=== PATIENT | female | born 2000 | race Hispanic/Latino ===

== ENCOUNTER → 2020-07-19 14:42 | Outpatient (CLI) | payer OTHER, MEDICAID, SELFPAY ==
[2020-07-20 09:21] LABS: HIV - WCH Non-Reactive (Nonreactive); Hepatitis B Surface Antigen Non-Reactive (Nonreactive)
[2020-07-21 01:33] LABS: Rapid Plasmin Reagin (RPR) NONREACTIVE (NONREACTIVE)
[2020-07-22 03:07] LABS: Chlamydia By Nucleic Acid AMP Negative (Negative)
[2020-07-22 15:44] LABS: Gonococcus By Nucleic Acid AMP Negative (Negative)
== END ==
PROVIDERS: PCP Pediatrics; Visit Provider Student in an Organized Health Care Education/Training Program
DX: Z11.3 Encounter for screening for infections with a predominantly sexual mode of transmission (principal)
CPT/HCPCS: 86592; 86703; 87340; 87491; 87591

== ENCOUNTER → 2022-04-03 | Outpatient (CLI) | payer OTHER, MEDICAID, SELFPAY ==
[2022-04-03 16:34] LABS: Absolute Lymphocyte Count 2.46 X10^3/uL (0.83-4.51); Absolute Neutrophil Count 3.3 X10^3/uL (2.0-7.7); Basophil# 0.03 X10^3/uL; Basophil% 0.5 % (0-1); Eosinophil# 0.14 X10^3/uL; Eosinophils% 2.2 % (0-5); Hematocrit 35.6 % (37-47); Hemoglobin 11.2 g/dL (12.0-15.0); Lymphocyte # 2.46 X10^3/ul (0.83-4.51); Lymphocyte % 38.3 % (19-41); Mean Corp Hgb Conc 31.5 g/dL (32-36); Mean Corpuscular Hgb 24.2 pg (27.0-32.0); Mean Corpuscular Volume 76.9 fL (81-99); Mean Platelet Vol. 12.6 fl (6.2-12.0); Monocyte# 0.46 X10^3/uL; Monocyte% 7.2 % (0-10); NRBC Flagged by Analyzer 0 % (0-5); Neutrophil # 3.32 X10^3/uL (2.7-7.7); Neutrophil % 51.6 % (47-70); Platelet Count 209 K/mm3 (150-450); RBC Distribution Width CV 14.6 % (11.6-14.6); RBC Distribution Width SD 40.2 fl (35.1-43.9); Red Blood Count 4.63 M/mm3 (4.2-5.4); White Blood Count 6.4 K/mm3 (4.4-11.0)
[2022-04-03 17:01] LABS: Hemoglobin A1c 5.2 % (3.8-5.6)
[2022-04-03 17:59] LABS: Vitamin D,25 Hydroxy 27.8 ng/mL
[2022-04-03 19:18] LABS: AST(SGOT) 24 U/L (15-37); Alanine Aminotransfer ALT/SGPT 19 U/L (13-56); Albumin, Serum 3.9 g/dL (3.2-5.0); Alkaline Phosphatase 72 U/L (45-117); Anion Gap 4 (5-15); BUN 11 mg/dL (7-18); BUN/Creat Ratio 19.2 RATIO (10-20); Calcium,Total 8.6 mg/dL (8.5-10.1); Chloride 107 mmol/L (98-107); Cholesterol 163 mg/dL (200); Creatinine, Serum 0.57 mg/dL (0.55-1.02); EST Glomerular Filtration Rate 140 mL/min (>60); Est Glom Filt Rate - Afr Amer 169 mL/min (>60); Free T3 2.5 pg/mL (2.18-3.98); Glucose 78 mg/dL (74-106); High Density Lipoprotein 67 mg/dL; Potassium 3.6 mmol/L (3.5-5.1); Protein, Total 7.9 g/dL (6.4-8.2); Sodium Level 139 mmol/L (136-145); T4 Free Direct 0.92 ng/dL (0.76-1.46); Thyroid Stim Hormone (TSH) < 0.01 uIU/mL (0.358-3.74); Triglycerides 174 mg/dL; Very Low Density Lipoprotein 35 mg/dL (5-40)
[2022-04-04 08:37] LABS: Ferritin 4 ng/mL (8-252); Iron 27 ug/dL (50-170); Iron Binding Capacity,Total 522 ug/dL (250-450); PERCENT IRON SATURATION 5.2 % (15.0-55.0)
[2022-04-05 22:07] LABS: Thyroid Peroxidase AB 592 IU/mL (0-34)
[2022-04-05 22:44] LABS: Thyroglobulin Antibody 7.7 IU/mL (0.0-0.9)
== END | disposition home or self-care (01) ==
LOC: BIMLAB 15:46
PROVIDERS: PCP Internal Medicine; Referring Provider Internal Medicine; Visit Provider Internal Medicine
DX: E56.9 Vitamin deficiency, unspecified (principal); E07.9 Disorder of thyroid, unspecified; E05.90 Thyrotoxicosis, unspecified without thyrotoxic crisis or storm
CPT/HCPCS: 36415; 80053; 80061; 82306; 82728; 83036; 83540; 83550; 84439; 84443; 84481; 85025; 86376; 86800

== ENCOUNTER 2025-09-02 08:52 | Emergency (ER) | payer OTHER, MEDICAID, SELFPAY ==
[2025-09-02 08:53] VITALS: BP 109/72; PULSE 81; RESP 14; TEMP 36.1; O2SAT 98
== END 2025-09-02 09:05 | disposition left against medical advice (07) ==
LOC: ED 09:16
PROVIDERS: PCP Internal Medicine
DX: Z53.21 Procedure and treatment not carried out due to patient leaving prior to being seen by health care provider (principal)

== ENCOUNTER 2025-10-20 08:00 | Outpatient (RCR) | payer OTHER, SELFPAY ==
--- NOTE | 2025-10-20 09:05 | BH.SGPN.GN ---
Behaviors/Verbalizations/Mental Status: [] Eye contact is good. Motor activity is appropriate. Appearance is casual. Speech is Appropriate. Mood is anxious. Affect is congruent. Thoughts are linear and logical. No evidence of psychosis. Reviewed daily check in sheet and no reports of suicidal ideations Client Response/Progress/Benefit: [] Pt participated at times during the group discussions. Attentive. This was pt?s first day in IOP. She briefly introduced herself stating that she was recently dx?d with Bipolar and spent 10 days in an inpatient psychiatric unit. According to pt she has struggles with omer and depression in her recent past and wants to be able to find mood stability. No progress noted as this was her first day in IOP. Benefited from group support, encouragement, and feedback. Will continue in IOP to prevent decompensation/re-admission to psych unit, stabilize mood, and increase healthy coping. Narrative Note: []
--- NOTE | 2025-10-20 10:15 | BH.SGPN.GN ---
Behaviors/Verbalizations/Mental Status: []Eye contact is good. Motor activity is appropriate. Appearance is neat. Speech is Appropriate. Mood is anxious. Affect is congruent. Thoughts are linear and logical. No evidence of psychosis Client Response/Progress/Benefit: [] Pt was an active participant in group discussions AEB listening attentively to others and providing feedback at times. Participated in and was engaged during experiential activity. Able to relate activity to group topic of FOF. Engaged during interactive discussion on what failure means to the group in which peers identified and defined failure. Group was able to identify impact of fear of failure on mental health. Attentive during interactive discussion on the role that FOF plays in mental wellness, depression, anxiety, and growth. Pt reported fear of failure has kept pt from taking chances in life and that failing can actually help people grow. Benefited from increased awareness of how the role that FOF plays in mental health and decision-making. Will continue in IOP to prevent decompensation, gain healthy coping skills, and improve daily functioning. Narrative Note: []
--- NOTE | 2025-10-20 11:15 | BH.SGPN.GN ---
Behaviors/Verbalizations/Mental Status: []Client alert and oriented, neatly dressed and groomed. Eye contact good. Motor activity appropriate. Speech within normal limits. Affect congruent, mood euthymic. Thoughts linear, logical, no signs of hallucinations or delusions. Client Response/Progress/Benefit: [] Pt responded well to session, engaged in the experiential activity and attentive throughout group processing. Pt reported fear of failure has kept Pt from going to law school. Pt completed fear of failure worksheet and was able to identify thoughts and behaviors that reinforce personal fear of failure including avoidance and people pleasing. Pt participated in small group discussion regarding strategies to overcome fear of failure. Identified wanting to practice trying things even if she is scared. Appeared to benefit from increased knowledge of strategies to combat fear of failure and gaining self-awareness. Pt will continue IOP tx to prevent decompensation, improve daily functioning, and gain healthy coping skills. Narrative Note: []
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
--- NOTE | 2025-10-22 07:48 | BH.DR.ITP ---
Initial Treatment Plan Patient Information Visit Information: ADMISSION DATE: 10/20/2025 EXPECTED LOS: 4-6 weeks Diagnoses:: Bipolar I Problems/Symptoms Problem #1:: Bipolar I Symptom:: impulsivity, flight of ideas, agitation, suicidality, distractability
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
[2025-10-22 10:58] VITALS: BP 116/80; PULSE 58
--- NOTE | 2025-10-22 11:10 | BH.SGPN.GN ---
Behaviors/Verbalizations/Mental Status: []Eye contact is good. Motor activity is appropriate. Appearance is casual. Speech is Appropriate. Mood is euthymic. Affect is congruent. Thoughts are linear and logical. No evidence of psychosis. Client Response/Progress/Benefit: [] Pt was an attentive participant in group discussions and actively engaged during experiential activity. Participated with peers on identifying the connection between the experiential activity and utilization of stress management skills. Attentive during psychoeducation on the 4 A's (Avoid, adapt, alter, accept) of coping with stress. Pt engaged in self-reflection activity in which they identified one of the 4 A's to address one their top stressors. Benefited from increased awareness of stress management strategies. Pt will continue IOP to promote mood stability, increase consistent use of healthy coping skills, and prevent decompensation.
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
--- NOTE | 2025-10-27 09:00 | BH.SGPN.GN ---
Behaviors/Verbalizations/Mental Status: [] Eye contact is good. Motor activity is appropriate. Appearance is casual. Speech is Appropriate. Mood is anxious. Affect is congruent. Thoughts are linear and logical. No evidence of psychosis. Reviewed daily check in sheet and no reports of suicidal ideations Client Response/Progress/Benefit: [] Pt participated at times during the group discussions. Attentive. She shared recent anger outbursts and concerns regarding impulsivity/emotion regulation. She also shared that she is beginning to sleep throughout the night. Benefited from group support, encouragement, and feedback. Will continue in IOP to maintain safety, prevent decompensation, and stabilize mood. Narrative Note: []
--- NOTE | 2025-10-27 10:10 | BH.SGPN.GN ---
Behaviors/Verbalizations/Mental Status: []Motor activity is appropriate. Appearance is neat. Speech is Appropriate. Mood is anxious. Affect is congruent. Thoughts are linear and logical. No evidence of psychosis. Client Response/Progress/Benefit: [] Pt was an engaged participant AEB listening attentively to others, taking notes, and providing feedback in small group discussions. Attentive during psychoeducation AEB by note taking and providing some input. Pt worked along with peers in small groups to define inappropriate guilt and appropriate guilt. Interactive discussion on examples of both inappropriate and appropriate guilt. Pt able to connect impact inappropriate guilt can have on MH. Pt noted having guilt due to recent mental health decompensation. Benefited from increased awareness of guilt and the differences between appropriate and inappropriate guilt. Pt to continue IOP tx to prevent decompensation, monitor medication changes, and gain healthy coping skills. Narrative Note: []
--- NOTE | 2025-10-27 11:10 | BH.SGPN.GN ---
Behaviors/Verbalizations/Mental Status: []Pt alert and oriented, casually dressed and groomed. Eye contact good. Motor activity appropriate. Speech within normal limits. Affect congruent, mood anxious. Thoughts linear, logical, no signs of hallucinations or delusions. Client Response/Progress/Benefit: [] Pt engaged participant AEB listening attentively to others and providing input throughout group. Pt worked within their small group to identify strategies to manage inappropriate guilt. Shared a personal example of inappropriate guilt as feeling bad about hanging out with friends when mom is home alone. Insight this leads to negative self-talk and feeling she can't have balance. Pt wants to work on combatting inappropriate guilt by challenging distortions and improving communication skills. Pt seemed to benefit from learning about strategies to manage appropriate and inappropriate guilt. Pt will continue IOP tx to reduce promote mood stability, reinforce healthy boundaries, and prevent decompensation. Narrative Note: []
--- NOTE | 2025-10-29 09:00 | BH.SGPN.GN ---
Behaviors/Verbalizations/Mental Status: []Eye contact is good. Motor activity is appropriate. Appearance is casual. Speech is Appropriate. Mood is dysthymic and anxious. Affect is congruent. Thoughts are linear and logical. No evidence of psychosis. Reviewed daily check in sheet and pt denies SI, plan, or intent as of this date 10/29/25. Client Response/Progress/Benefit: [] Pt was an active participant in group discussions. Attentive. Did well to identify 2 mental health wins, which included being able to work on repairing the relationship with her sister. Described having a difficult but important conversation that went well. Additional win noted as applying for a job she feels will meet her current mental health needs of healthy distraction and socialization. Stressor noted as struggling with anxiety when by herself. Appeared to benefit from provided support, encouragement, and feedback. Identified areas of progress and skills to maintain gains. Will continue IOP tx to improve mood stability, continue to improve distress tolerance, and prevent decompensation. Narrative Note: []
--- NOTE | 2025-11-01 09:00 | BH.SGPN.GN ---
Behaviors/Verbalizations/Mental Status: [] Pt alert and oriented, neatly dressed and groomed. Eye contact good. Motor activity appropriate. Speech within normal limits. Affect constricted, mood anxious. Thoughts linear, logical, no signs of hallucinations or delusions. Reviewed pt?s symptom tracker, no risk for suicidal ideation, plan, or intent 11/01/25. Client Response/Progress/Benefit: []Pt was an active participant in group discussions. Attentive. 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 Pt's stressor today is ?my anxiety hasn?t reduced yet.? The group offered pt suggests managing this stressor and emotional support which pt reported was helpful. Pt is feeling ?anxious? this morning. Pt receptive to feedback from peers. Benefited from group support, encouragement, and feedback. Progress noted. Pt will continue IOP tx to prevent decompensation, improve daily functioning, and gain self-compassion skills. Narrative Note: []
--- NOTE | 2025-11-01 10:10 | BH.SGPN.GN ---
Behaviors/Verbalizations/Mental Status: []Pt alert and oriented, casually dressed and groomed. Eye contact good. Motor activity appropriate. Speech within normal limits. Affect congruent, mood anxious and content. Thoughts linear, logical, no signs of hallucinations or delusions. Client Response/Progress/Benefit: [] Pt took notes and contributed to group discussions. Attentive during psychoeducation on growth mindset. Interactive group discussion on fixed mindset in which group verbalized their current fixed mindsets and how they affect their mental health. Pt shared common fixed mindset thoughts they have. 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 Pt able to connect negative impact fixed thoughts have on functioning. Pt benefited from increased awareness of growth mindset and fixed thoughts and how fixed thoughts impact their mental health. Will continue IOP tx to promote use of healthy coping skills, challenge negative thoughts, and prevent decompensation. Narrative Note: []
--- NOTE | 2025-11-01 11:10 | BH.SGPN.GN ---
Behaviors/Verbalizations/Mental Status: []Pt alert and oriented, neatly dressed and groomed. Eye contact good. Motor activity appropriate. Speech within normal limits. Affect congruent, mood anxious. Thoughts linear, logical, no signs of hallucinations or delusions. Client Response/Progress/Benefit: [] Pt was an active participant during activity and discussion. Pt did well to remain attentive and participate as group worked on identifying characteristics and benefits of adopting a growth mindset. Worked with fellow participants in reframing the example fixed thoughts into growth mindset thoughts. Pt worked on changing own fixed thought. Pt attentive during discussion about different strategies that can help with fostering a growth mindset. Pt appeared to benefit from challenging own thoughts and engaging in the activity. Pt will continue IOP tx to challenge distorted thoughts, improve healthy coping skills, and prevent decompensation.
--- NOTE | 2025-11-03 10:36 | BH.MDN ---
Multi-Disciplinary Note Note 60-min Individual: Time Started:: 10:15 Date: 10/29/25 Purpose of session/treatment goals addressed:: Purpose of session was to address goals 1 and 2 from MTP. Eye Contact:: Good Motor Activity:: Appropriate Appearance:: Neat Speech:: Appropriate Mood:: Anxious Affect:: Full Thoughts:: Linear, Logical and No evidence of hallucinations/delusions noted Staff Interventions:: thought challenging, psychoeducation on: (omer, hypomania, and depression), CBT techniques, mindfulness skills (guided meditation in session), rapport building, strengths perspective and taught coping skills Client Response:: Client reported she has been struggling with feeling guilt over the decisions she made while she was in a manic state. Client receptive to psychoeducation about omer, hypomania, and depression. Client stated while she was manic she found herself to have moments of extreme anger in which she would be mean to others which she noted is not her baseline. Client worked with therapist to develop a timeline of when her manic episode started and symptoms she was experiencing. Client shared she believes she started to becoming religiously preoccupied about 2 months ago. Client reported she was in a unhealthy relationship and her ex wouldn't leave her alone. Client stated their relationship was on and off and she noticed being very angry and disrespectful towards him. Client stated her irritability was high and she would be mean. Client reported she was trying to figure out what would make her ex to stop reaching out. Client stated she started having thoughts that it was God's plan for her to find a new person to so her ex would leave her alone. Client reported she contacted a friend she went to school with and talked with him about how it was God's plan to be together and get . Client stated she went on maybe 2 dates with this kalyn and they got engaged that week. Client reported she was maybe engaged for 2-4 days before she thought God no longer wanted her to get . Client feels a lot of guilt with the fact she just left the ring and never talked to this kalyn again. Time Stopped:: 11:08
--- NOTE | 2025-11-08 11:15 | BH.SGPN.GN ---
Behaviors/Verbalizations/Mental Status: [] Eye contact is good. Motor activity is appropriate. Appearance is casual. Speech is Appropriate. Mood is anxious. Affect is congruent. Thoughts are linear and logical. No evidence of psychosis. Client Response/Progress/Benefit: [] Pt was a semi-engaged participant in group discussion and activity, mostly listening as others contributed. Worked with group to identify strategies to help overcome barriers and obstacles to desired reality. Group developed strategies for the common barriers. Identified personal barriers to desired reality and was able to identify a skill of small steps in communicating openly with supports to address barrier of fear of vulnerability. Pt seemed to benefit from increased repertoire of healthy coping skills/strategies to overcome common barriers to moving forward. Will continue in IOP to prevent decompensation, stabilize emotions, increase healthy coping, and improve functioning. Narrative Note: []
--- NOTE | 2025-11-10 10:36 | BH.MDN_ITS ---
Multi-Disciplinary Note Note 45-min Individual: Time Started:: 12:15 Date: 11/10/25 Purpose of session/treatment goals addressed:: Purpose of session was to address goals 1 and 2 from MTP. Eye Contact:: Good Motor Activity:: Appropriate Appearance:: Neat Speech:: Appropriate Mood:: Anxious Affect:: Congruent Thoughts:: Linear, Logical and No evidence of hallucinations/delusions noted Staff Interventions:: thought challenging, CBT techniques, mindfulness skills, strengths perspective and taught coping skills (Positive affirmations and grounding) Client Response:: Client reported overall she is feeling more energized today. Client stated client reported she is feeling anxiety about needing to go to a [employer] tonight with family that she has not seen in a while. She is like anxious because she knows this family is going to ask how her job is going and of asked about her boyfriend. Client noted she is not sure which to say because she does not really want to talk about her bipolar disorder and what happened during her manic episode recently. 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 Client and therapist talked about different ways she could potentially handle tonight either by being open about her diagnosis and what's been going on or coming up with what she is okay with communicating to her extended family. Client stated she does not want to open up to this extended family about her bipolar disorder because she knows there is stigma within her family about mental health. Client reported something she might explore in the future but at this time she would like to focus on coming up with what she is okay communicating to this family. Client stated she thinks she is going to keep things more superficial about her job and what happened with her ex-boyfriend. Client reported she is nervous that her anxiety will take over because since her manic episode she has experienced increased anxiety in crowds. Therapist provided psychoeducation about mindfulness skill of grounding and temperature change to help with in the moment anxiety. Therapist encouraged client that if she starts to notice her anxiety worsening she can asked to step away and take a moment to go outside in the cold or splashed water on her face. Therapist also taught her that she could bring with her a grounding tool such as a textured object that fits in her pocket, that she could utilize in the moment to bring her back to the here and now. Client shared she is also stressed that she feels like she does not know who she is since her manic episode. Client noted there is continued guilt and embarrassment over the things that happened while she was manic. Therapist asked client for homework to write down her likes, things she is good at, traits, values, and characteristics of her prior to her manic episode. Client reported she is open to doing that for homework because she thinks it could be helpful for her to remind herself of who she is. Client also open to writing down at least 3 positive affirmations and putting on her mirror that she will start seeing every morning while she is doing her make-up. Risks/Concerns:: Denies suicidal ideation, plan, intention. Future oriented. Progress Toward Goals/Plan:: Progress noted with client reporting improved understanding of bipolar disorder and her symptomology. Client also noted feeling more energetic this morning. Client does continue to have some guilt and disappointment about her behavior while she was in a manic state. Client has shown some improvement with being able to challenge the distortions connected to her manic episode. Client reports continued anxiety about being in large gatherings which she noted is a significant increase compared to before her manic episode. Client noted she believes she is feeling more anxious because she is worried she is og do or say something that others will youth court judge her for her. Therapist normalized anxiety and taught different skills that she can utilize to manage anxiety in the moment. Plan is for client to continue IOP to continue building healthy coping skills to manage mood, challenge negative thoughts, and prevent decompensation. Time Stopped:: 13:00
--- NOTE | 2025-11-10 11:05 | BH.SGPN.GN ---
Behaviors/Verbalizations/Mental Status: []Client alert and oriented, neatly dressed and groomed. Eye contact good. Motor activity appropriate. Speech within normal limits. Affect congruent, mood euthymic. Thoughts linear, logical, no signs of hallucinations or delusions. Client Response/Progress/Benefit: [] Pt receptive of session, engaged throughout AEB Pt actively listening and contributing to discussion as well as taking notes.? Pt participated in the experiential activity and did well to communicate ideas with peers and manage emotions. Pt attentive as group processed how the emotions and perspective of the group impacted the activity. Pt was highly encouraging during the activity which helped peers. Group worked together to identify different coping skills to help manage pitfalls. Pt identified pitfalls they struggle ?not opening up about vulnerable things,? self-sabotage, and guilt. Pt plans to work on their pitfall by ?finding the vidal.? Benefited from identifying personal pitfalls and strategies to overcome these pitfalls. Pt will continue IOP tx to promote mood stability, increase self-compassion, and gain healthy coping skills. ? Narrative Note: []
--- NOTE | 2025-11-10 13:09 | BH.TPR ---
Treatment Plan Review Demographics Date of Admission:: 10/20/25 Date of Treatment Plan Review:: 11/10/25 Patient Status Patient's Response to Treatment:: Pt has responded well to treatment AEB consistent treatment attendance, engagement in group sessions, and openly shares concerns and problems in individual sessions. Status of Current Problems and Symptoms: Ongoing problems. Pt currently reports improved mood stability Progress Problem #1: Problem Name:: Mood Instability
== END 2025-11-10 23:59 ==
LOC: BHIOP 08:00
PROVIDERS: PCP Internal Medicine; Referring Provider Student in an Organized Health Care Education/Training Program; Visit Provider Student in an Organized Health Care Education/Training Program
DX: F31.9 Bipolar disorder, unspecified (principal)
CPT/HCPCS: S9480; 90832; 90834; 90837; 90853

== ENCOUNTER → 2025-10-29 | Outpatient (CLI) | payer OTHER, SELFPAY ==
[2025-10-29 15:02] LABS: Anion Gap 10 (5-15); BUN 10 mg/dL (4-19); BUN/Creat Ratio 13.7 RATIO (10-20); Calcium,Total 9.4 mg/dL (7.6-11.0); Carbon Dioxide 24.7 mmol/L (21.0-32.0); Chloride 103 mmol/L (98-108); Glucose 87 mg/dL (70-99); Potassium 3.9 mmol/L (3.3-5.1)
[2025-10-29 15:03] LABS: Lithium 0.83 mmol/L (0.60-1.20)
--- NOTE | 2025-11-03 07:37 | PCM.BH.PN ---
Intake Vital Signs 10/22/25 10:58 11/03/25 07:38 Height 5 ft 1 in 5 ft 1 in Intake Visit Reasons: follow up Allergies No Known Allergies Allergy (Verified 10/22/25 10:32) Medications Medication Instructions Recorded Confirmed Type levothyroxine 100 mcg tablet 100 mcg PO DAILY disorder of 10/22/25 10/22/25 History thyroid gland lithium carbonate 450 mg 450 mg PO BID #60 tabs 10/22/25 Rx tablet,extended release risperidone 1 mg tablet 1 mg PO BID #60 tabs 10/22/25 Rx HPI () History of Present Illness History provided by: patient Chief complaint: med follow up HPI: Peace Person is a 25 year old female who presents today for follow up evaluation. Patient reports to having been doing better with reduced dose of risperidone. Does feel somewhat less constipated since reducing. Continues to feel somewhat more "mellow." This is overall a good. Did recently see endocrinology and had levothyroxine increased. Sleep has been doing largely well. Review of systems () Constitutional Denies: fever(s), chills, change in weight or fatigue Eyes Denies: change in vision or blurry vision Ears, Nose, Mouth, Throat Denies: throat pain, neck pain or change in hearing Cardiovascular Denies: chest pain, palpitations or dyspnea Respiratory Denies: dyspnea, cough or wheezing Gastrointestinal Reports: constipation; Denies: abdominal pain, nausea, vomiting or diarrhea Genitourinary Denies: dysuria or urinary frequency Musculoskeletal Denies: back pain, neck pain, joint pain or muscle weakness Integumentary/Breast Denies: rash or new lesions Neurological Denies: headache(s), dizziness or confusion Endocrine Denies: fatigue or excessive sweating Hematologic/Lymphatic Denies: easy bruising or easy bleeding Allergic/Immunologic Denies: wheezing Exam Mental Status Exam- Psych () Appearance casually dressed and well kempt Attitude cooperative and calm Activity/Motor Behavior MSE activity/motor behavior finding no adventitious movements Speech regular rate, regular volume and regular prosody Mood OK ("mellow") Affect congruent Thought Process linear, logical and coherent Thought Content no delusions and no hallucinations Suicidal Ideation none Homicidal Ideation none Attention intact Concentration intact Sensorium/Orientation awake, alert and oriented x3 Memory/Cognition other (appropriate for stated age) Insight fair Judgement fair Assessment & Plan () Assessment & Plan (1) Bipolar I disorder: Plan: - lithium level: 0.83; largely doing well with exception of some situation anxiety - continue lithium as before - continue risperidone at reduced dose; tolerating well. Consider further reduction over time pending response (2) Encounter for lithium monitoring: Plan: - see above Charges/Coding Behavior Health Behavior Health EST Pt E/M: 10827 Est Pt Level IV
== END | disposition home or self-care (01) ==
PROVIDERS: PCP Internal Medicine; Referring Provider Student in an Organized Health Care Education/Training Program; Visit Provider Student in an Organized Health Care Education/Training Program
DX: Z51.81 Encounter for therapeutic drug level monitoring (principal); F31.9 Bipolar disorder, unspecified; Z79.899 Other long term (current) drug therapy
CPT/HCPCS: 36415; 80048; 80178